=== PATIENT | female | born 1980 | race African-American/Black ===

== ENCOUNTER → 2018-08-27 | Emergency (ER) | payer OTHER ==
[~2018-08-27] VITALS: Ht 160 cm; Wt 64.9 kg
== END | disposition home or self-care (01) ==
LOC: ER 12:02
DX: S42.221A 2-part displaced fracture of surgical neck of right humerus, initial encounter for closed fracture (principal); X50.0XXA Overexertion from strenuous movement or load, initial encounter; Y93.89 Activity, other specified; Y92.832 Beach as the place of occurrence of the external cause; Y99.8 Other external cause status